=== PATIENT | female | born 1995 ===

== ENCOUNTER 2021-04-22 13:44 | Observation (INO) | payer OTHER ==
--- NOTE | 2021-04-22 14:15 | Emergency Department Report ---
ED Female HPI - General Chief complaint: Vaginal Bleeding Stated complaint: HEMORRAGE Time Seen by Provider: 04/22/21 14:11 Source: patient Mode of arrival: Ambulatory Limitations: No Limitations (patient was seen by her miner helper (ted) and referred here for possible surgery. she was told she has "hemorrhage from the labial mass." consent was completed by ted prior to patient arrival) - History of Present Illness MD Complaint: pelvic pain -: Gradual, days(s) (worse today) Location: labia Radiation: non-radiating Severity: severe Quality: sharp Consistency: constant Improves with: none Worsens with: movement Are you Now?: No Associated Symptoms: denies other symptoms - Related Data Sexually active: Yes Allergies Allergy/AdvReac Type Severity Reaction Status Date / Time No Known Allergies Allergy Unverified 04/22/21 13:50 ED Review of Systems ROS: Stated complaint: HEMORRAGE Other details as noted in HPI Comment: All other systems reviewed and negative Constitutional: denies: fever Eyes: denies: eye discharge ENT: denies: congestion Respiratory: denies: cough Cardiovascular: denies: chest pain Endocrine: denies: increased thirst Gastrointestinal: denies: abdominal pain Genitourinary: denies: urgency Skin: denies: rash Hematological/Lymphatic: denies: easy bruising ED Past Medical Hx - Past Medical History Hx Hypertension: No Hx CVA: No Additional medical history: DEXCARDIA - Surgical History Hx Open Heart Surgery: Yes ED Physical Exam - General Limitations: No Limitations General appearance: alert (in pain) - Head Head exam: Present: atraumatic - Eye Eye exam: Present: normal appearance, EOMI. Absent: scleral icterus - ENT ENT exam: Present: normal exam - Neck Neck exam: Present: full ROM. Absent: meningismus - Respiratory Respiratory exam: Absent: respiratory distress - GI/Abdominal GI/Abdominal exam: Absent: distended - Extremities Exam Extremities exam: Present: normal capillary refill (gu exam defferred as pt recently seen by miner helper with or planned) ED Course Vital Signs 04/22/21 04/22/21 13:53 13:54 Temperature 98.1 F Pulse Rate 60 Respiratory 20 Rate Blood Pressure 149/80 O2 Sat by Pulse 99 Oximetry - Reevaluation(s) Reevaluation #1: 04/22/21 14:16 [id number] paged [id number]-ted paged 04/22/21 14:52 [id number] paged. spoke to juan orellana/surgery. they are "coming to get the patient." he is aware i've not conversed with dr. candie jean. 04/22/21 14:57 1500-Case was discussed with Dr. Jean. Patient is bleeding from a Bartholin cyst. Whether this is an abscess or hematoma is unclear. Patient is being taken urgently to the operative room for surgical evaluation and management. She is not tachycardic or hypotensive. I am not concerned for significant hemorrhage or blood loss. She has no evidence of shock. There is no evidence of hypoperfusion. Patient does not have any evidence of bleeding from other sites or areas that would suggest any type of bleeding diathesis. Critical care attestation.: If time is entered above; I have spent that time in minutes in the direct care of this critically ill patient, excluding procedure time. ED Disposition Clinical Impression: Bartholin gland cyst, Bleeding from wound Disposition: ADMITTED INPATIENT Is pt being admited?: Yes Condition: Fair
[2021-04-22] MEDS ORDERED: SODIUM CHLORIDE 0.9% 1000 ML 1,000 ML ONE (14:55)
[2021-04-22] MEDS ORDERED: MIDAZOLAM 2 MG/2 ML INJ ONE (15:05)
[2021-04-22] MEDS ORDERED: propofoL 200 MG/20 ML VIAL IV ONE (15:09)
[2021-04-22] MEDS ORDERED: LIDOCAINE MPF (2%) 20 MG/1 ML VIAL 5 ML ONE (15:09)
[2021-04-22] MEDS ORDERED: HYDROmorphone 1 MG/1 ML INJ ONE (15:09)
[2021-04-22] MEDS ORDERED: ceFAZolin 1 GM VIAL ONE ×2 (15:28)
[2021-04-22] MEDS ORDERED: ACETAMINOPHEN 325 MG TAB PO PRN (17:00)
[2021-04-22] MEDS ORDERED: LACTATED RINGERS 1,000 ML IV SCH (17:00)
[2021-04-22] MEDS ORDERED: ONDANSETRON 4 MG/2 ML INJ ONE (17:05)
[2021-04-22] MEDS ORDERED: SODIUM CHLORIDE 0.9% IRR 1,500 ML BOTTLE IR ONE (17:11)
--- NOTE | 2021-04-22 17:19 | Anesthesia Day of Surgery ---
Anesthesia Day of Surgery - Day of Surgery Patient Examined: Yes Patient H&P Reviewed: Yes Patient is NPO: Yes
--- NOTE | 2021-04-22 17:19 | Anesthesia Consultation ---
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
[2021-04-22] MEDS ORDERED: ONDANSETRON 4 MG/2 ML INJ IV PRN ×2 (17:21→17:30)
--- NOTE | 2021-04-22 17:21 | History and Physical Report ---
History of Present Illness Date of examination: 04/22/21 Chief complaint: bleeding from her right side of her vaginal cyst History of present illness: with previous recurrent right bartholin's cyst that was incised and drained in the past 07/2020 and second treatment with word catheter placement in the past shortly afterwards. Seen at [facility] yesterday and then [facility] ER last night for bulging to her right vagina and they told her to be seen in the clinic today because this is a pandemic and her situation was not critical. Pt then came to [facility] with active vag bleed to right labia. Pt also complained of pain to that right side. Pt had not eaten all night due to pain was very upset that she was bleeding heavily now. Denies fever or chills or cough symptoms. Pt desires future fertility. Pt denied sexual intercourse or use of toys to her vaginal area or any trauma. Past History Past Medical History: other (dextrocardia since ) Past Surgical History: other (Multiple surgical procedures with detrocardia including cardiac cath.) Medications and Allergies Allergies Allergy/AdvReac Type Severity Reaction Status Date / Time No Known Allergies Allergy Unverified 04/22/21 13:50 Active Meds: Active Medications Acetaminophen (Acetaminophen 325 Mg Tab) 650 mg PO Q4H PRN PRN Reason: Pain MILD(1-3)/Fever >100.5/KIM Hydromorphone HCl (Hydromorphone 1 Mg/1 Ml Inj) 0.25 mg IV Q3H PRN PRN Reason: Pain, Moderate (4-6) Lactated Ringer's (Lactated Ringers) 1,000 mls @ 125 mls/hr IV DIRECT TOPHER Cefazolin Sodium (Ancef/Ns 1 Gm/50 Ml) 1 gm in 50 mls @ 100 mls/hr IV Q8H TOPHER; Protocol Stop: 04/23/21 01:29 Ibuprofen (Ibuprofen 800 Mg Tab) 800 mg PO Q8H PRN PRN Reason: Pain, Moderate (4-6) Morphine Sulfate (Morphine 2 Mg/1 Ml Inj) 2 mg IV Q4H PRN PRN Reason: Pain, Moderate (4-6) Ondansetron HCl (Ondansetron 4 Mg/2 Ml Inj) 4 mg IV Q4H PRN PRN Reason: N/V unrelieved by Reglan Review of Systems All systems: negative (bleeding from right side of vagina) - Vital Signs Vital signs: Vital Signs Pulse Resp BP Pulse Ox 60 20 149/80 99 04/22/21 13:53 04/22/21 13:53 04/22/21 13:53 04/22/21 13:53 Temp Pulse Resp BP Pulse Ox 98.1 F 60 20 149/80 99 04/22/21 13:54 04/22/21 13:53 04/22/21 13:53 04/22/21 13:53 04/22/21 13:53 - Physical Exam Breasts: Positive: deferred Cardiovascular: Regular rate Lungs: Positive: Normal air movement Abdomen: Positive: normal appearance Genitourinary (Female): Positive: other (6x4cm mass to right labia with a constant drip blood without clots) Results Result Diagrams: 04/23/21 13:39 04/23/21 13:39 All other labs normal. Assessment and Plan Right vulvar mass that is enlarged with a hematoma actively bleeding and expanding 1. Admit for evacuation of hematoma, and treat active bleeding from it's source, consent obtained and will need 23hr observation 2. CBC repeat in am Plan of care discussed and pt admitted from the ER. All questions encouraged and answered.
[2021-04-22] MEDS: HYDROmorphone 1 MG/1 ML INJ IV PRN ×4 (17:22→17:53)
[2021-04-22] MEDS ORDERED: HYDROmorphone 1 MG/1 ML INJ IV PRN (17:30)
[2021-04-22] MEDS ORDERED: IBUPROFEN 800 MG TAB PO PRN (17:30)
--- NOTE | 2021-04-22 17:39 | Post Anesthesia Evaluation ---
- Post Anesthesia Evaluation Patient Participated: Yes Airway Patent: Yes Stable Respiratory Function: Yes Nausea/Vomiting: No Temp > 96.8F: Yes Pain Manageable: Yes Adequeate Hydration: Yes Anesthesia Complications: No Block Receding Appropriately: Not Applicable Patient on Ventilator: No
--- NOTE | 2021-04-22 17:47 | Procedure Note ---
Date of procedure: 04/22/21 Pre-op diagnosis: Right vulvar hematoma with active bleeding Post-op diagnosis: same (Active bleeding with tracking from previous bartholin's cyst wall) Procedure: Procedure: Evacuation of hematoma and excision of right bartholin's cyst wall to arrest active bleeding Surgeon: Tanisha Bourgeois MD After the risks, benefits and alternatives of the procedure were discussed, pt signed consents and was taken to the OR from the ER via stretcher. Time out done and pt was given general anesthesia, prep and draped in usual sterile fashion and given antibiotics with contaminated wound per protocol. Red rubber catheter used to empty the bladder and 125cc obtained. Attention turned to the active bleeding site at the lowest portion of the right labia and the source was not identified, however there was tracking upward to the entire right labia and towards the bartholin's cyst. Linear incision 4cm then made over current 3cm bartholin's cyst and smooth forceps placed in the cavity measured 6x4cm. Aerobic and anerobic cultures sent for the fluid obtained from the mucoid hemorrhagic fluid in the cyst. Active bleeding could be seen from the base of the cyst wall, therefore cyst removed to the point of where active bleeding seen and same stopped both with 2 interrupted 0-vicryl suture. Less than 5mm of cyst wall remaining with good hemostasis now. Copious irrigation done. Surgical powder placed for added hemostasis and interrupted suture using 3-0 vicryl to close the cavity where the cyst had extended. The skin closed with running locked 3-0 vicryl suture and the inferior portion of the labia that was draining was also closed with interrupted 3-0 vicryl. All instruments and sponges removed and count correct x2. Pt extubated and taken to recovery room stable. Pt to be observed x23hrs and repeat cbc in the am. Findings: bidirectional vulvar cyst that tracks from previous bartholin's cyst superior and inferior labia with active bleeding to base of previous bartholin's cyst wall. Active bleeding exiting to inferior portion of labia. Implants: none Anesthesia: GETA Surgeon: TANISHA BOURGEOIS Estimated blood loss: other (200cc) Pathology: list (bartholin's cyst wall and scar tissue) Specimen disposition: to lab Condition: stable Disposition: PACU
[2021-04-22 18:14] LABS: Basophils % (Auto) 0.5 % (0.0-1.8); Eosinophils % (Auto) 0.4 % (0.0-4.3); Hematocrit 49.5 % (30.3-42.9); Hemoglobin 16.6 gm/dl (10.1-14.3); Lymphocytes # (Auto) 1.8 K/mm3 (1.2-5.4); Lymphocytes % (Auto) 27.2 % (13.4-35.0); Mean Corpuscular HGB Conc 34 % (30-34); Mean Corpuscular Volume 98 fl (79-97); Monocytes # (Auto) 0.4 K/mm3 (0.0-0.8); Monocytes % (Auto) 5.7 % (0.0-7.3); Platelet Count 132 K/mm3 (140-440); Red Blood Count 5.03 M/mm3 (3.65-5.03); Red Cell Distribution Width 13.9 % (13.2-15.2)
[2021-04-22] MEDS: ceFAZolin/NS 1 GM/50 ML 1 GM/50 ML BAG IV SCH (22:16)
[2021-04-22] MEDS: MORPHINE 2 MG/1 ML INJ IV PRN (22:19)
[2021-04-23] MEDS: MORPHINE 2 MG/1 ML INJ IV PRN ×2 (04:18→08:07)
[2021-04-23 04:37] LABS: Basophils % (Auto) 0.2 % (0.0-1.8); Eosinophils % (Auto) 0.1 % (0.0-4.3); Hematocrit 45.4 % (30.3-42.9); Hemoglobin 15.4 gm/dl (10.1-14.3); Lymphocytes # (Auto) 1.5 K/mm3 (1.2-5.4); Lymphocytes % (Auto) 11.6 % (13.4-35.0); Mean Corpuscular HGB Conc 34 % (30-34); Mean Corpuscular Volume 97 fl (79-97); Monocytes # (Auto) 0.7 K/mm3 (0.0-0.8); Monocytes % (Auto) 5.5 % (0.0-7.3); Platelet Count 127 K/mm3 (140-440); Red Blood Count 4.66 M/mm3 (3.65-5.03); Red Cell Distribution Width 13.4 % (13.2-15.2)
[2021-04-23] MEDS: ceFAZolin/NS 1 GM/50 ML 1 GM/50 ML BAG IV SCH (06:38)
--- NOTE | 2021-04-23 09:07 | Progress Note ---
Assessment and Plan pt improving but not sure of d/c yet. Subjective - Subjective Date of service: 04/23/21 Principal diagnosis: right bartolin gland cyst with evaculation. Interval history: see h&p. Patient reports: appetite normal, voiding normally, pain well controlled, ambulating normally Objective - Vital Signs Latest vital signs: Vital Signs Temp Pulse Resp BP BP Pulse Ox 04/23/21 04:21 98.5 F 69 20 126/78 94 04/22/21 22:56 97.5 F L 63 20 138/85 97 04/22/21 20:50 98.2 F 69 20 134/68 96 04/22/21 19:10 96 04/22/21 18:15 97.2 F L 67 20 163/95 95 04/22/21 18:00 71 14 142/94 97 04/22/21 17:45 97.3 F L 63 14 145/92 100 04/22/21 17:30 64 16 145/89 100 04/22/21 17:15 69 16 147/99 100 04/22/21 17:10 70 16 151/97 99 04/22/21 17:07 97.2 F L 69 16 164/101 100 04/22/21 13:54 98.1 F 04/22/21 13:53 60 20 149/80 99 Intake and Output 04/22/21 04/23/21 04/23/21 23:59 07:59 15:59 Intake Total 275 240 Output Total 300 Balance 275 -60 Intake: IV 275 ANCEF/NS 1 GM/50 ML 1 gm 50 In 50 ml @ 100 mls/hr IV Q8H [facility] Rx#:[id number] Right Wrist 125 Oral 240 Output: Urine 300 Void 300 Other: Total, Intake Amount 240 Total, Output Amount 300 Voiding Method Toilet - Exam Vulva: both: normal (left vulva is swollen, right is moderatedly tender) - Labs Labs: Abnormal lab results 04/22/21 04/23/21 Range/Units 17:50 03:58 WBC 13.2 H (4.5-11.0) K/mm3 Hgb 16.6 H 15.4 H (10.1-14.3) gm/dl Hct 49.5 H 45.4 H (30.3-42.9) % MCV 98 H (79-97) fl MCH 33 H 33 H (28-32) pg Plt Count 132 L 127 L (140-440) K/mm3 Lymph % (Auto) 11.6 L (13.4-35.0) % Seg Neutrophils % 82.6 H (40.0-70.0) % Seg Neutrophils # 10.9 H (1.8-7.7) K/mm3
[2021-04-23] MEDS ORDERED: oxyCODONE /ACETAMINOPHEN 5-325MG TAB PO PRN (11:00)
[2021-04-23 14:41] LABS: Alanine Aminotransferase 12 units/L (7-56); Albumin 4.5 g/dL (3.9-5); Blood Urea Nitrogen 9 mg/dL (7-17); Calcium 9.3 mg/dL (8.4-10.2); Hemolysis Index 21
[2021-04-23 14:42] LABS: BUN/Creatinine Ratio 18
[2021-04-23 15:07] LABS: Basophils % (Auto) 0.3 % (0.0-1.8); Eosinophils % (Auto) 0.1 % (0.0-4.3); Hematocrit 48.9 % (30.3-42.9); Hemoglobin 16.5 gm/dl (10.1-14.3); Lymphocytes # (Auto) 1.8 K/mm3 (1.2-5.4); Lymphocytes % (Auto) 14.3 % (13.4-35.0); Mean Corpuscular HGB Conc 34 % (30-34); Mean Corpuscular Volume 98 fl (79-97); Monocytes # (Auto) 0.8 K/mm3 (0.0-0.8); Monocytes % (Auto) 6.7 % (0.0-7.3); Platelet Count 140 K/mm3 (140-440); Red Blood Count 5.01 M/mm3 (3.65-5.03); Red Cell Distribution Width 13.7 % (13.2-15.2)
[2021-04-24 08:56] VITALS: BP 114/63
--- NOTE | 2021-04-24 09:47 | Progress Note ---
Subjective - Subjective Date of service: 04/24/21 Principal diagnosis: right bartolin gland cyst with evaculation. Interval history: stable for discharge Edith Keen MD Patient reports: appetite normal, voiding normally, pain well controlled, ambulating normally Objective - Vital Signs Latest vital signs: Vital Signs Temp Pulse Resp BP Pulse Ox 04/24/21 08:45 99.0 F 61 20 114/63 99 04/24/21 04:22 98.1 F 54 L 20 98/58 94 04/23/21 23:42 98.0 F 64 20 124/78 96 04/23/21 20:36 98.6 F 66 20 140/70 97 04/23/21 19:30 100 04/23/21 16:30 99.2 F 68 17 125/71 93 04/23/21 13:11 97.9 F 76 20 140/79 98 04/23/21 13:04 98.4 F 61 18 116/69 95 Intake and Output 04/23/21 04/24/21 04/24/21 23:59 07:59 15:59 Intake Total 480 Output Total 825 200 Balance -345 -200 Intake: Intake, Free Water 480 Output: Urine 825 200 Void 825 200 Other: Total, Output Amount 400 200 Voiding Method Toilet - Labs Labs: Abnormal lab results 04/23/21 04/23/21 Range/Units 13:39 13:39 WBC 12.5 H (4.5-11.0) K/mm3 Hgb 16.5 H (10.1-14.3) gm/dl Hct 48.9 H (30.3-42.9) % MCV 98 H (79-97) fl MCH 33 H (28-32) pg Seg Neutrophils % 78.6 H (40.0-70.0) % Seg Neutrophils # 9.8 H (1.8-7.7) K/mm3 Sodium 135 L (137-145) mmol/L Creatinine 0.5 L (0.6-1.2) mg/dL Total Bilirubin 1.50 H (0.1-1.2) mg/dL
--- NOTE | 2021-04-24 09:48 | Discharge Summary ---
Providers - Providers Date of Admission: 04/22/21 16:59 Date of discharge: 04/24/21 Attending physician: SUSAN BOURGEOIS Primary care physician: [facility]CEPTOR [facility]PERATOR Hospitalization Reason for admission: other (bartholins cyst) Condition at discharge: Stable Disposition: 01 HOME / SELF CARE / HOMELESS Plan - Provider Discharge Summary Activity: no sex for 6 weeks Additional instructions: [] Smoking cessation referral if applicable(refer to patient education folder for contact #) [] Refer to [facility]'s [facility] Booklet Call your doctor immediately for: * Fever > 100.5 * Heavy vaginal bleeding ( >1 pad per hour) * Severe persistent headache * Shortness of breath * Reddened, hot, painful area to leg or breast * Drainage or odor from incision. * Keep incision clean and dry at all times and follow doctor's instructions re garding bathing/showering - Follow up plan Follow up: PRIMARY CARE, [Primary Care Provider] - 7 Days
== END 2021-04-24 13:20 | disposition home or self-care (01) ==
LOC: ED 13:44 → OB 16:59
PROVIDERS: ADMIT Obstetrics & Gynecology; ATTEND Obstetrics & Gynecology
DX: N75.0 Cyst of Bartholin's gland (principal); N93.8 Other specified abnormal uterine and vaginal bleeding; R19.09 Other intra-abdominal and pelvic swelling, mass and lump; R58 Hemorrhage, not elsewhere classified
CPT/HCPCS: 36415; 56405; 80053; 85025; 85245; 87075; 87116; 88305; 96365; 96366; 96375; 96376; 99284; G0378; J0690; J1170; J2250; J2270; J2405; J2704; J7030; J7120